=== PATIENT | male | born 1990 | race Caucasian/White ===

== ENCOUNTER 2018-11-08 10:46 | Day surgery (SDC) | payer BC ==
[~2018-11-08] VITALS: Ht 193 cm; Wt 74.8 kg
[2018-11-08] VITALS (9 sets, daily range): BP systolic 110–132; BP diastolic 55–79
[~2018-11-08 10:46] MED LIST: AMOXICILLIN500 MG ORAL; Bupivacaine 0.5% Inj 30 ml vial INJ ONE; SUBOXONE 2 MG-1 EACH SL; ceFAZolin 1gm IVPB IVPB ONE
[2018-11-08] MEDS ORDERED: fentaNYL 100 mcg/2 mL IV ONE (10:57)
[2018-11-08] MEDS ORDERED: Midazolam 2mg/2ml Inj ONE (10:57)
[2018-11-08] MEDS ORDERED: Lidocaine 1% MPF 10mg/ml 5ml ONE (10:57)
[2018-11-08] MEDS ORDERED: Propofol 200mg/20ml IV ONE (10:57)
[2018-11-08] MEDS ORDERED: DiphenhydrAMINE 50mg/ml Inj ONE ×2 (10:59→14:49)
--- NOTE | 2018-11-08 11:20 | NUR ---
PT TOOK KIM AT 0700 AND 0800 AM.
--- NOTE | 2018-11-08 11:33 | Pre-Procedure Note/Attestation ---
Pre-Procedure Note/Attestation Complete Prior to Procedure Planned Procedure: left Procedure Narrative: laparoscopic varicocelectomy left Indications for Procedure Pre-Operative Diagnosis: left varicocele Attestation I attest that I discussed the nature of the procedure; its benefits; risks and complications; and alternatives (and the risks and benefits of such alternatives ), prior to the procedure, with the patient (or the patient's legal b2b outside sales representative). I attest that, if there was a reasonable possibility of needing a blood transfusion, the patient (or the patient's legal b2b outside sales representative) was given the [facility] standardized written summary, pursuant to the Nestor Tejinder Blood Safety Act ([place] Health and Safety Code # 1645, as amended). I attest that I re-evaluated the patient just prior to the surgery and that there has been no change in the patient's H&P, except as documented below: Rom López MD Nov 08, 2018 11:33
[2018-11-08] MEDS ORDERED: Zemuron 50mg/5ml Inj IV ONE (11:46)
[2018-11-08] MEDS ORDERED: LR 1000ml ONE (12:00)
[2018-11-08] MEDS ORDERED: Ketorolac 30mg Inj ONE ×2 (12:32→13:02)
[2018-11-08] MEDS ORDERED: Hydromorphone 0.5mg/0.5ml inj IVP PRN (12:45)
[2018-11-08] MEDS ORDERED: Acetaminophen (Non formulary) 100 ML IV ONE (12:45)
--- NOTE | 2018-11-08 12:55 | Brief Operative Note ---
Immediate Post Operative Note Operative Note Pre-op Diagnosis: left varicocele Procedure: Left laparoscopic varicocelectomy Post-op Diagnosis: same Post-op Diagnosis: same as pre-op Surgeon: Sanchez López Anesthesia: general Specimen: none Complications: none Condition: stable Fluids: 500 Implant(s) used?: No Rom López MD Nov 08, 2018 12:55
[2018-11-08] MEDS ORDERED: Tylenol #3 tab (300mg/30mg) ORAL PRN (13:00)
[2018-11-08] MEDS ORDERED: HYDROmorphone 1mg/ml Carpuject SUBQ PRN (13:00)
[2018-11-08] MEDS ORDERED: Norco 5mg/325mg tab ORAL PRN (13:00)
--- NOTE | 2018-11-08 13:01 | Anethesia Preoperative Eval ---
Anesthesia Pre-op PMH/ROS General Date of Evaluation: Nov 08, 2018 Time of Evaluation: 11:42 Anesthesiologist: Kelsey Ponce CRNA ASA Score: ASA 2 Mallampati Score Class I : Soft palate, uvula, fauces, pillars visible Class II: Soft palate, uvula, fauces visible Class III: Soft palate, base of uvula visible Class IV: Only hard plate visible Mallampati Classification: Class II Surgeon: Maribel Diagnosis: LEFT varicocele Surgical Procedure: LEFT varicocelectomy Anesthesia History: none Social History: smoking, current smoker - 10 Pack years Family History: no anesthesia problems Allergies: Coded Allergies: No Known Allergies (Unverified , 11/07/18) Medications: see eMAR Patient NPO?: Yes NPO Date: Nov 08, 2018 NPO Time: 00:00 Past Medical History Cardiovascular: Denies: HTN, CAD, PA, valve dz, arrhythmia, other Pulmonary: Denies: asthma, COPD, MICHELLE, other Gastrointestinal/Genitourinary: Reports: other - LEFT varicocele; Denies: GERD, CRI, ESRD Neurologic/Psychiatric: Reports: other - Hx of opioid addiction s/p rehab 2 yrs ago; Denies: dementia, CVA, depression/anxiety, TIA Endocrine: Denies: DM, hypothyroidism, steroids, other HEENT: Denies: cataract (L), cataract (R), glaucoma, [place] DEE-NI' (L), [place] DEE-NI' (R), other PMH Narrative: as above PSxH Narrative: toe surgery Anesthesia Pre-op Phys. Exam Physician Exam Last Vital Signs Date Time Temp Pulse Resp B/P (MAP) Pulse Ox O2 Delivery O2 Flow Rate FiO2 11/08/18 11:34 97.7 69 20 124/79 99 Room Air Constitutional: NAD, other - diffuse rash since this AM, denies throat swelling , difficulty breathing, VSS Neurologic: CN 2-12 intact Cardiovascular: RRR Respiratory: CTA Gastrointestinal: S/NT/ND Airway Exam Mallampati Score: Class II Neck: long thin neck TMD: > 3 FB ROM: full Teeth: intact Dentures: no upper, no lower Anesthesia Pre-op A/P Risk Assessment & Plan Assessment: ASA 2 ok to proceed Plan: GETA Pre-Antibiotics Drug: Kelsey Carvajal CRNA Nov 08, 2018 13:00
[2018-11-08] MEDS ORDERED: Glycopyrrolate 0.2mg/ml 1ml Vial ONE (13:02)
[2018-11-08] MEDS ORDERED: Neostigmine 1mg/ml 10ml Inj ONE (13:02)
--- NOTE | 2018-11-08 13:12 | Immediate Post-Op Evaluation ---
Immediate Post-Op Evalulation Immediate Post-Op Evalulation Procedure: LEFT laparoscopic varicocelectomy Date of Evaluation: Nov 08, 2018 Time of Evaluation: 13:01 IV Fluids: LR 1000 ml Estimated Blood Loss: 2 Blood Pressure Systolic: 126 Blood Pressure Diastolic: 66 Pulse Rate: 74 Respiratory Rate: 22 O2 Sat by Pulse Oximetry: 100 Temperature (Fahrenheit): 98.2 Pain Score (1-10): 0 Nausea: No Vomiting: No Complications none Patient Status: awake, reacts, patent, extubated Hydration Status: adequate Drug: Cefazolin 2 gm Given Within 1 Hr of Incision: Yes Time Given: 12:00 Kelsey Ponce CRNA Nov 08, 2018 13:12
--- NOTE | 2018-11-08 13:21 | 48 Hour Post Anesthesia Eval ---
Post Anesthesia Evaluation Procedure: LEFT laparoscopic varicocelectomy Date of Evaluation: Nov 08, 2018 Time of Evaluation: 11:20 Blood Pressure Systolic: 125 0: 71 Pulse Rate: 74 Respiratory Rate: 22 Temperature (Fahrenheit): 97.4 O2 Sat by Pulse Oximetry: 100 Airway: patent Nausea: No Vomiting: No Pain Intensity: 0 Hydration Status: adequate Cardiopulmonary Status: stable Mental Status/LOC: patient returned to baseline Follow-up Care/Observations: per urology Post-Anesthesia Complications: none Follow-up care needed: ready to discharge Kelsey Ponce CRNA Nov 08, 2018 13:21
[2018-11-08] MEDS ORDERED: DiphenhydrAMINE 50mg/ml Inj IVP SCH (14:49)
[2018-11-08] MEDS ORDERED: D5 1/2NS 1,000 ML IV SCH (17:00)
--- NOTE | 2018-11-09 23:30 | Operative Note - Dictated ---
DATE OF OPERATION: 11/08/2018 PREOPERATIVE DIAGNOSIS: Left varicocele. POSTOPERATIVE DIAGNOSIS: Left varicocele. OPERATION: Left laparoscopic varicocelectomy. OPERATED BY: Rom López M.D. ANESTHESIA: General. FINDINGS: gonadal vein. INDICATIONS FOR SURGERY: The patient had recurrent symptoms of pain in the left testicle due to this varicocele. Treatment options were explained at great length including all potential complications. He signed the consent. PROCEDURE IN DETAIL: He was brought to the operating room, placed in the supine position, and prepped and draped in standard fashion. Under general anesthesia, a 5 mm trocar was placed after . Dissection started mobilizing the gonadal vein, which was gonadal artery. There was no evidence of bleeding. Wound was then closed. The patient was transferred to recovery room in stable condition. No complications. Sponge count and instrument count was correct. Rom López M.D. DR: DEV JOB#: [id number] CC:
== END 2018-11-08 15:30 | disposition home or self-care (01) ==
LOC: SUR 10:46
DX: I86.1 Scrotal varices (principal); F17.210 Nicotine dependence, cigarettes, uncomplicated; F11.21 Opioid dependence, in remission
CPT/HCPCS: 55550; J0690; J1200; J1885; J2250; J2405; J2704; J2710; J3010; J3490; 94003; 94150